=== PATIENT | male | born 1945 | race Caucasian/White ===

== ENCOUNTER 2017-08-22 14:48 | Inpatient (IN) | payer MEDICARE, MEDICAID ==
[~2017-08-22] VITALS: Ht 182.9 cm; Wt 86.6 kg
--- NOTE | ~2017-08-22 | PN ---
PATIENT:KIKO CASTRO MEDICAL RECORD: [id number] LOCATION:[facility] ADMISSION DATE: 08/22/17 PROGRESS NOTE DATE OF SERVICE: 09/01/2017 SUBJECTIVE: The patient's case was discussed with staff. He has no new complaint. OBJECTIVE: The patient is delusional and quite anxious, but he has shown significant improvement in the past few days. ASSESSMENT: No change in diagnoses. PLAN: Current medicines have been reviewed and will be maintained. His long-term prognosis is guarded. TRANSINT:[id number] Voice Confirmation ID: [id number] DOCUMENT ID: [id number] MAHIN DUONG MD at 1247 CC: [id number] DICTATION DATE: 09/01/17 1327 BILINGUAL ACCOUNT MANAGER: 09/01/17 1334 ADM IN [place] [id number] [place] [address]
--- NOTE | ~2017-08-22 | PN ---
PATIENT:KIKO CASTRO MEDICAL RECORD: [id number] LOCATION:[facility] ADMISSION DATE: 08/22/17 PROGRESS NOTE DATE OF SERVICE: 08/24/2017 SUBJECTIVE: The patient's case was discussed with staff. He has no new complaint. OBJECTIVE: The patient is very delusional, was agitated through the night and quite disruptive. ASSESSMENT: No change in diagnoses. PLAN: The patient is going to be treated with a scheduled dose of Geodon for his psychotic agitation. His Seroquel dose will be titrated downward as the Geodon is titrated upward. TRANSINT:[id number] Voice Confirmation ID: [id number] DOCUMENT ID: [id number] MAHIN DUONG MD at 1348 CC: [id number] DICTATION DATE: 08/24/17 1740 SUPPORT MERCHANDISER: 08/24/17 1832 ADM IN [facility] [address] [id number]
--- NOTE | ~2017-08-22 | PN ---
PATIENT:KIKO CASTRO MEDICAL RECORD: [id number] LOCATION:[facility] ADMISSION DATE: 08/22/17 PROGRESS NOTE DATE OF SERVICE: 09/03/2017 SUBJECTIVE: The patient's case was discussed with staff. He has no new complaint. OBJECTIVE: The patient is in good behavioral control with limited insight about his condition. He tolerates his medicines well. ASSESSMENT: No change in diagnoses. PLAN: Supportive and educational interventions were made. The patient is still delusional, but he is improving. TRANSINT:[id number] Voice Confirmation ID: [id number] DOCUMENT ID: [id number] MAHIN DUONG MD at 1809 CC: [id number] DICTATION DATE: 09/03/17 1030 SALES ACCOUNT MANAGER: 09/03/17 1122 ADM IN [place] [id number] [place] [address]
--- NOTE | ~2017-08-22 | PN ---
PATIENT:KIKO CASTRO MEDICAL RECORD: [id number] LOCATION:[facility] ADMISSION DATE: 08/22/17 PROGRESS NOTE DATE OF SERVICE: 08/30/2017 SUBJECTIVE: The patient's case was discussed with staff. He has no new complaint. OBJECTIVE: The patient actually has a Depakote level that is in the range I would have predicted given the dose he is taking, which I am very pleased to say indicates he has been compliant with medications at a level that is higher than I would have previously guessed. He continues to be delusional. He is very disorganized, easily distressed. I am going to push the dose of his Depakote and Geodon higher, but not today given his tendency to become easily distressed and overwhelmed by even the most minor side effect. He has only been on these doses a short period of time. I think he may actually be slightly better clinically, although he does have a long way to go before he is ready for discharge. For today, I am going to just prescribe a low dose of Klonopin. TRANSINT:[id number] Voice Confirmation ID: [id number] DOCUMENT ID: [id number] MAHIN DUONG MD at 1224 CC: [id number] DICTATION DATE: 08/30/17 1451 CONSTRUCTION ENGINEER: 08/30/17 1519 ADM IN [place] [id number] [place] [id number]
--- NOTE | ~2017-08-22 | PN ---
PATIENT:KIKO CASTRO MEDICAL RECORD: [id number] LOCATION:[facility] ADMISSION DATE: 08/22/17 PROGRESS NOTE DATE OF SERVICE: 09/08/2017 SUBJECTIVE: The patient's case was discussed with staff. He has no new complaint. OBJECTIVE: The patient is calm and cooperative. His thought processes are a little disorganized, but he is denying active thoughts of self-harm or harming others as well as overt psychotic symptoms. ASSESSMENT: No change in diagnoses. PLAN: Brief supportive and educational interventions were made. Nursing Home prognosis is guarded. TRANSINT:[id number] Voice Confirmation ID: [id number] DOCUMENT ID: [id number] MAHIN DUONG MD at 1403 CC: [id number] DICTATION DATE: 09/08/17 1325 STEEPING PRESS TENDER: 09/08/17 1339 ADM IN [id number] [place] [address]
--- NOTE | ~2017-08-22 | PSY ---
PATIENT NAME:KIKO CASTRO MEDICAL RECORD: [id number] : 49 LOCATION:[facility] ADMISSION DATE: 08/22/17 ACCOUNT: [id number] PSYCHIATRIC EVALUATION DATE OF EVALUATION: 08/23/17 IDENTIFYING DATA: The patient is 71 years old and he is admitted to the hospital on a voluntary basis. CHIEF COMPLAINT: Psychosis. HISTORY OF PRESENT ILLNESS: The patient has a history of dementia and a history of psychiatric disease. He lives in a local snf, where he has been observed actively hallucinating and confused. He also made some statements about wanting to kill himself, but he does not have any recollection of this. He apparently had some bizarre beliefs that a militia or a group of Nazis were after him. He also had some bizarre beliefs about the toilet being clogged and feces flowing out into his room, which certainly could happen, but it was not happening when he was so distressed about it. He minimizes these things and says that we just do not know who really is after us. PAST MEDICAL HISTORY: Significant for hypertension, coronary artery disease, peripheral vascular disease, COPD, and recent amputation of the right great toe. PAST PSYCHIATRIC HISTORY: Significant for long-standing psychiatric illness with an established diagnoses of both dementia and schizophrenia. ALLERGIES: HALDOL, LITHIUM, TRAMADOL, AND HYDROXYZINE. CURRENT MEDICATIONS: Include aspirin, Lipitor, Neurontin, nystatin, OxyContin, Minipress, Seroquel, Symbicort, Flomax, Desyrel, and Trileptal. FAMILY HISTORY: Negative for psychiatric disease by his report. SOCIAL HISTORY: The patient says that he previously worked at [employer]. He says he has been and and has 2 adult children with whom he has little or no contact. He has a long history of alcohol abuse, but none recently. He has no history of recreational drug use. MENTAL STATUS EXAMINATION: The patient is awake, alert, and oriented to person, place, and somewhat to time and situation. His mood is flat. His affect is constricted. Thought processes are circumstantial. Memory, concentration, and abstraction abilities are at least moderately impaired. He denies that he would seek to harm himself or others as well as overt psychotic symptoms. ASSETS: Supportive family members. LIABILITIES: Limited insight. DIAGNOSTIC IMPRESSION: AXIS I: Schizophrenia, chronic, undifferentiated. Senile dementia of the Alzheimer's type. AXIS II: None. AXIS III: Hypertension, coronary artery disease, peripheral vascular disease, COPD. AXIS IV: Moderate stressors. AXIS V: Global assessment of functioning is 30. PLAN: At this time, the patient is admitted to the hospital for a comprehensive medical, psychological, and social evaluation. He will be treated with both mood stabilizing, memory enhancing, and antipsychotic medications as deemed appropriate. His long-term prognosis is guarded. TRANSINT:[id number] Voice Confirmation ID: [id number] DOCUMENT ID: [id number] MAHIN DUONG MD at 1348 CC: [id number] DICTATION DATE: 08/23/17 1504 CHEMICAL MIXER: 08/23/17 1541 ADM IN [facility] [address] [id number]
--- NOTE | ~2017-08-22 | PN ---
PATIENT:KIKO CASTRO MEDICAL RECORD: [id number] LOCATION:[facility] ADMISSION DATE: 08/22/17 PROGRESS NOTE DATE OF SERVICE: 09/05/2017 SUBJECTIVE: The patient's case was discussed with staff. He has no new complaint. OBJECTIVE: The patient is in good behavioral control with limited insight about his condition. He tolerates his medicines well. ASSESSMENT: No change in diagnoses. PLAN: Brief supportive and educational interventions were made. Jail prognosis is guarded. I am going to check a Depakote level and will slightly reduce his bedtime dose of trazodone. TRANSINT:[id number] Voice Confirmation ID: [id number] DOCUMENT ID: [id number] MAHIN DUONG MD at 1445 CC: [id number] DICTATION DATE: 09/05/17 1336 RNP: 09/05/17 1412 ADM IN [place] [id number] [place] [id number]
--- NOTE | ~2017-08-22 | PN ---
PATIENT:KIKO CASTRO MEDICAL RECORD: [id number] LOCATION:[facility] ADMISSION DATE: 08/22/17 PROGRESS NOTE DATE OF SERVICE: 09/13/2017 SUBJECTIVE: The patient's case was discussed with staff. He has no new complaint. OBJECTIVE: The patient is in good behavioral control with limited insight about his condition. He does tolerate his medicines well. ASSESSMENT: No change in diagnoses. PLAN: Brief supportive and educational interventions were made. The patient does not have any evidence of acute or direct dangerousness and shall be transitioned out of the hospital today. TRANSINT:[id number] Voice Confirmation ID: [id number] DOCUMENT ID: [id number] MAHIN DUONG MD at 1218 CC: [id number] DICTATION DATE: 09/13/17 1445 TILE SETTER SUPERVISOR: 09/13/17 1458 DIS IN 09/13/17 [id number] [place] [address]
--- NOTE | ~2017-08-22 | PN ---
PATIENT:KIKO CASTRO MEDICAL RECORD: [id number] LOCATION:[facility] ADMISSION DATE: 08/22/17 PROGRESS NOTE DATE OF SERVICE: 08/29/2017 SUBJECTIVE: The patient's case was discussed with staff. He has no new complaint. OBJECTIVE: The patient is in good behavioral control. He has limited insight about his condition. He continues to make very bizarre and delusional statements and at times to be significantly agitated. He is intermittently compliant with his medications. I believe the mood stabilizer Depakote would help him. I am not sure how many doses he has missed or just simply stored in the side of his mouth and spit out. Given the dose he is on and the amount of time he is on, full compliance, I would expect a level in the range of 50. I shall certainly be surprised if it is higher than that and given his intermittent compliance, I would not be surprised if it is half that amount. I am going to discontinue his Seroquel and I am trying to manage him on a single antipsychotic medication and I am going to increase the Geodon. ASSESSMENT: No change in diagnoses. PLAN: As described above, the patient will be maintained on these medications with the changes as described. TRANSINT:[id number] Voice Confirmation ID: [id number] DOCUMENT ID: [id number] MAHIN DUONG MD at 1417 CC: [id number] DICTATION DATE: 08/29/17 1358 SLURRY TANK TENDER: 08/29/17 1414 ADM IN [place] [id number] [place] [address]
--- NOTE | ~2017-08-22 | PN ---
PATIENT:KIKO CASTRO MEDICAL RECORD: [id number] LOCATION:[facility] ADMISSION DATE: 08/22/17 PROGRESS NOTE DATE OF SERVICE: 09/09/2017 SUBJECTIVE: No new complaint noted. OBJECTIVE: The patient has been taking medications as prescribed. He has not shown any aggressiveness or agitation in the last 24 hours. On exam, mood is for the most part euthymic. Affect is somewhat peculiar with occasional inappropriate laughter. Speech is somewhat tangential. Content of thought is unchanged. Sensorium unchanged. ASSESSMENT: No change in diagnosis. PLAN: 1. Maintain current medications. 2. Continue supportive therapy. TRANSINT:[id number] Voice Confirmation ID: [id number] DOCUMENT ID: [id number] KIKO WALSH III, MD at 1341 CC: [id number] DICTATION DATE: 09/09/17 1144 COMMERCIAL LINES MANAGER: 09/09/17 1152 ADM IN [facility] [address] [place] [address]
--- NOTE | ~2017-08-22 | PN ---
PATIENT:KIKO CASTRO MEDICAL RECORD: [id number] LOCATION:[facility] ADMISSION DATE: 08/22/17 PROGRESS NOTE DATE OF SERVICE: 08/26/2017 SUBJECTIVE: The patient complains of various nonspecific somatic complaints. OBJECTIVE: The patient is somewhat less intrusive, but continues to exhibit demanding behavior. Speech is rambling. He exhibits estefania loosening of associations at times. Mood somewhat irritable. Affect is peculiar and generally inappropriate. Content of thought exhibits delusional ideation. Sensorium shows no change. ASSESSMENT: No change in diagnosis. PLAN: 1. Maintain current medication. 2. Continue supportive therapy. TRANSINT:[id number] Voice Confirmation ID: [id number] DOCUMENT ID: [id number] KIKO WALSH III, MD at 1142 CC: [id number] DICTATION DATE: 08/26/17 1213 MINE SHIFTER: 08/26/17 1219 ADM IN [place] [id number] [place] [address]
--- NOTE | ~2017-08-22 | PN ---
PATIENT:KIKO CASTRO MEDICAL RECORD: [id number] LOCATION:[facility] ADMISSION DATE: 08/22/17 PROGRESS NOTE DATE OF SERVICE: 09/06/2017 SUBJECTIVE: The patient's case was discussed with staff. He has no new complaint. OBJECTIVE: The patient continues to be disorganized and delusional. He has fairly limited insight about his condition. He has a Depakote level of 60 today. ASSESSMENT: No change in diagnoses. PLAN: Current medicines and therapies have been reviewed and will be maintained. I am going to consolidate the current dose of Depakote into a twice daily dosing schedule rather than a 3 times daily dosing schedule. TRANSINT:[id number] Voice Confirmation ID: [id number] DOCUMENT ID: [id number] MAHIN DUONG MD at 1147 CC: [id number] DICTATION DATE: 09/06/17 1456 SOAPING MACHINE BACK TENDER: 09/06/17 1518 ADM IN [place] [place] [address]
--- NOTE | ~2017-08-22 | PN ---
PATIENT:KIKO CASTRO MEDICAL RECORD: [id number] LOCATION:[facility] ADMISSION DATE: 08/22/17 PROGRESS NOTE DATE OF SERVICE: 09/07/2017 SUBJECTIVE: The patient's case was discussed with staff. He has no new complaint. OBJECTIVE: The patient denies intent to harm himself or others. He generally tolerates his medicines well. He is delusional and intrusive, but the intensity or degree of these symptoms has dramatically declined. ASSESSMENT: No change in diagnoses. PLAN: The patient is not currently suicidal. Physical therapy is evaluating him and working with him. He is sleeping an adequate amount. I am going to reduce his trazodone slightly. TRANSINT:[id number] Voice Confirmation ID: [id number] DOCUMENT ID: [id number] MAHIN DUONG MD at 1304 CC: [id number] DICTATION DATE: 09/07/17 1206 MORTGAGE PROFESSIONAL: 09/07/17 1219 ADM IN [place] [id number] [place] [address]
--- NOTE | ~2017-08-22 | PN ---
PATIENT:KIKO CASTRO MEDICAL RECORD: [id number] LOCATION:[facility] ADMISSION DATE: 08/22/17 PROGRESS NOTE DATE OF SERVICE: 09/02/2017 SUBJECTIVE: The patient's case was discussed with staff. He has no new complaint. OBJECTIVE: The patient is in good behavioral control with limited insight about his condition. He tolerates his medicines well. He is certainly very delusional and anxious, but his current medicines have not had much of an opportunity to become effective. I am sure, they will need additional adjustments, but at this point, I reviewed them and I am not going to make those changes. TRANSINT:[id number] Voice Confirmation ID: [id number] DOCUMENT ID: [id number] MAHIN DUONG MD at 1921 CC: [id number] DICTATION DATE: 09/02/17 1406 ASSOCIATE FINANCIAL PLANNER: 09/02/17 1419 ADM IN [facility] [address] [place] [address]
--- NOTE | ~2017-08-22 | DS ---
PATIENT:KIKO CASTRO :49 MEDICAL RECORD: [id number] DISCHARGE SUMMARY ADMISSION DATE: 08/22/17 DISCHARGE DATE: 09/13/17 IDENTIFYING DATA: The patient is 71 years old and he was admitted to the hospital on a voluntary basis because of psychotic symptoms. The patient has a history of dementia despite his relative youth and he unfortunately lives in a local prison where he has been observed hallucinating and confused. He also made statements about wanting to kill himself, but when interviewed about this did not have recollection of having done so. He had some fairly bizarre delusions, for example he believed that there was some sort of paramilitary group of Nazis that were after him. He also became very upset thinking that the toilet in his room was clogged with excrement and was overflowing which it was not. HOSPITAL COURSE: The patient was admitted to the hospital and fully evaluated from both a medical, psychological, and social standpoint. As it turns out, the patient actually has a history of mental illness and had been diagnosed previously with schizophrenia. Unfortunately, he also has cognitive decline consistent with a progressive dementia. He was treated with both antipsychotic and mood stabilizing and memory enhancing medications and showed significant improvement. He was subsequently transitioned out of the hospital. DISCHARGE DIAGNOSES: AXIS I: Schizophrenia, chronic, undifferentiated. Senile dementia of the Alzheimer's type. AXIS II: None. AXIS III: Hypertension, coronary artery disease, peripheral vascular disease, chronic obstructive pulmonary disease. AXIS IV: Moderate stressors. AXIS V: Global assessment of functioning is 35. PLAN: At the time of discharge, the patient was in good behavioral control and had no active thoughts of harming himself or others. He had some mild delusional thought content, but was otherwise dramatically improved with regard to his delusions and hallucinations. Unfortunately, there was little or no improvement in his underlying cognitive abilities as one would expect with the dementia. Follow up was to be with his primary care physician and his outpatient psychiatrist. TRANSINT:[id number] Voice Confirmation ID: [id number] DOCUMENT ID: [id number] MAHIN DUONG MD at 0804 CC: [id number] DICTATION DATE: 09/15/17 1355 CREPING MACHINE OPERATOR: 09/15/17 1410 DIS IN 09/13/17 [facility] [address] [facility] [address]
--- NOTE | ~2017-08-22 | PN ---
PATIENT:KIKO CASTRO MEDICAL RECORD: [id number] LOCATION:[facility] ADMISSION DATE: 08/22/17 PROGRESS NOTE DATE OF SERVICE: 08/31/2017 SUBJECTIVE: The patient's case was discussed with staff. He has no new complaint. OBJECTIVE: The patient continues to be delusional and disorganized. He makes a number of very bizarre statements. ASSESSMENT: No change in diagnoses. PLAN: The patient will have his Klonopin and Zyprexa increased. I am also going to increase his Depakote. Although, I typically would not make multiple changes of this kind all on the same day, his overall condition is such that it is required in my opinion. The patient continues to be very disorganized. His long-term prognosis is guarded. TRANSINT:[id number] Voice Confirmation ID: [id number] DOCUMENT ID: [id number] MAHIN DUONG MD at 1318 CC: [id number] DICTATION DATE: 08/31/17 1229 AUTOMOTIVE ENGINEERING TECHNICIAN: 08/31/17 1250 ADM IN [id number] [place] [address]
--- NOTE | ~2017-08-22 | PN ---
PATIENT:KIKO CASTRO MEDICAL RECORD: [id number] LOCATION:[facility] ADMISSION DATE: 08/22/17 PROGRESS NOTE DATE OF SERVICE: 09/12/2017 SUBJECTIVE: The patient's case was discussed with staff. He has no new complaint. OBJECTIVE: The patient is in good behavioral control, but delusional. ASSESSMENT: No change in diagnoses. PLAN: The patient has a high therapeutic Depakote level and has shown improvement. I believe he is reasonably safe to be transitioned out of the hospital tomorrow assuming this level of improvement is maintained. Followup will be with his primary care [facility] physician and outpatient psychiatrist. TRANSINT:[id number] Voice Confirmation ID: [id number] DOCUMENT ID: [id number] MAHIN DUONG MD at 1344 CC: [id number] DICTATION DATE: 09/12/17 1415 FAMILY SERVICES MANAGER: 09/12/17 1445 ADM IN [address] [id number] [place] [address]
--- NOTE | ~2017-08-22 | PN ---
PATIENT:KIKO CASTRO MEDICAL RECORD: [id number] LOCATION:[facility] ADMISSION DATE: 08/22/17 PROGRESS NOTE DATE OF SERVICE: 08/25/2017 SUBJECTIVE: The patient's case was discussed with staff. He has no new complaint. OBJECTIVE: The patient is in good behavioral control, although very delusional. He was agitated earlier today and required p.r.n. medication because of that agitation. ASSESSMENT: No change in diagnoses. PLAN: Current medicines and therapies have been reviewed and will be maintained. Long-term prognosis is guarded. TRANSINT:[id number] Voice Confirmation ID: [id number] DOCUMENT ID: [id number] MAHIN DUONG MD at 1348 CC: [id number] DICTATION DATE: 08/25/17 1512 SENIOR GL ACCOUNTANT: 08/25/17 1603 ADM IN [facility] [address] [id number]
[2017-08-22] MEDS ORDERED: ASPIRIN81 MG PO (15:14)
[2017-08-22] MEDS ORDERED: LIPITOR40 MG PO (15:15)
[2017-08-22] MEDS ORDERED: CALCIUM 600 +1 EAC3 PO (15:16)
[2017-08-22] MEDS ORDERED: IPRAT-ALBUT 0.5-3 ML UPD (15:17)
[2017-08-22] MEDS ORDERED: DULCOLAX5 MG PO (15:17)
[2017-08-22] MEDS ORDERED: FLUTICASONE PRO16 GM NASAL (15:18)
[2017-08-22] MEDS ORDERED: ENULOSE10 G/15 ML PO (15:19)
[2017-08-22] MEDS ORDERED: LIDODERM 5 %1 PATCH TRANSDERM (15:22)
[2017-08-22] MEDS ORDERED: MILK OF MAGNESI30 ML PO (15:23)
[2017-08-22] MEDS ORDERED: MIRALAX17 GM PO (15:23)
[2017-08-22] MEDS ORDERED: NAPROXEN250 MG PO (15:24)
[2017-08-22] MEDS ORDERED: NEURONTIN 300300 MG PO (15:24)
[2017-08-22] MEDS ORDERED: OMEPRAZOLE20 M1 PO (15:25)
[2017-08-22] MEDS ORDERED: NYSTATIN ORAL SU5 ML PO (15:25)
[2017-08-22] MEDS ORDERED: OXYCONTIN10 MG PO (15:27)
[2017-08-22] MEDS ORDERED: MINIPRESS2 MG PO (15:31)
[2017-08-22] MEDS ORDERED: REFRESH TEARS15 ML EACH EYE (15:32)
[2017-08-22] MEDS ORDERED: SANTYL30 GM TP (15:33)
[2017-08-22] MEDS ORDERED: SALINE NASAL SP45 ML NS (15:33)
[2017-08-22] MEDS ORDERED: SEROQUEL400 MG PO (15:34)
[2017-08-22] MEDS ORDERED: SENNA LAXATIVE8.6 MG PO (15:34)
[2017-08-22] MEDS ORDERED: SYMBICORT 80-10.2 GM INH (15:35)
[2017-08-22] MEDS ORDERED: COLACE100 MG PO (15:35)
[2017-08-22] MEDS ORDERED: FLOMAX0.4 MG PO (15:36)
[2017-08-22] MEDS ORDERED: DESERYL100 MG PO (15:36)
[2017-08-22] MEDS ORDERED: TRILEPTAL300 MG PO (15:36)
[2017-08-22] MEDS ORDERED: TUMS500 MG PO (15:38)
[2017-08-22 15:48] VITALS: BP 144/67
[2017-08-22 16:00] VITALS: BP 144/67
[2017-08-22 17:09] VITALS: BMI 25.9
[2017-08-22 19:49] VITALS: BP 141/51; BP 144/61
[2017-08-23 06:46] LABS: BASOPHILS 0.3 % (0-2); EOSINOPHILS 2.1 % (0-7); HEMOGLOBIN 12.7 g/dL (13.5-17.5); IMMATURE GRANULOCYTES 0.2 % (0-5); LYMPHOCYTES 18.3 % (15-50); MCH 30.6 pg (26.0-34.0); MCHC 33.4 g/dL (31.0-37.0); MCV 91.6 fL (80.0-100.0); MEAN PLATELET VOLUME 9.1 fL (7.4-10.4); MONOCYTES 10.6 % (2-11); NEUTROPHILS 68.5 % (40-80); PLATELET COUNT 210 10x3/uL (130-400); RBC 4.15 10x6/uL (4.20-6.10); RDW 16.2 % (11.5-14.5); WBC 5.7 10x3/uL (4.8-10.8)
[2017-08-23 07:13] LABS: ANION GAP 12.3 mmol/L (8-16); BILIRUBIN - TOTAL 0.3 mg/dL (0.2-1.3); CARBON DIOXIDE 25.6 mmol/L (21.0-32.0); CHOL - HDL RATIO 1.7 ratio (2.3-4.9); CREATININE - SERUM 1.2 mg/dL (0.6-1.3); LDL-HDL RATIO 0.5 ratio (1.5-3.5); POTASSIUM - SERUM 3.9 mmol/L (3.5-5.1); PROTEIN - SERUM 7.7 g/dL (6.4-8.2); THYROID STIMULATING HORMONE 3.31 uIU/mL (0.36-3.74)
[2017-08-23 09:52] VITALS: BP 100/58
[2017-08-23 11:05] VITALS: BP 100/58
[2017-08-23 13:45] LABS: APPEARANCE CLEAR (CLEAR); BILIRUBIN NEGATIVE (NEGATIVE); COLOR YELLOW (YELLOW); GLUCOSE NEGATIVE (NEGATIVE); KETONE NEGATIVE (NEGATIVE); NITRITE NEGATIVE (NEGATIVE); PROTEIN NEGATIVE (NEGATIVE); SPECIFIC GRAVITY 1.015 (1.005-1.020); UROBILINOGEN NORMAL (NORMAL)
[2017-08-23 19:42] VITALS: BP 135/72
[2017-08-24 07:29] LABS: RAPID PLASMA REAGIN Non Reactive (Non Reactive)
[2017-08-24 09:18] VITALS: BP 126/71
[2017-08-24 09:45] VITALS: BP 126/71
[2017-08-24 09:52] VITALS: BP 126/71
[2017-08-24 10:21] LABS: VITAMIN D 25 HYDROXY 38.1 ng/mL (30.0-100.0)
[2017-08-24 11:18] LABS: FOLATE (FOLIC ACID) - SERUM 10.4 ng/mL (>3.0)
[2017-08-24 20:30] VITALS: BP 121/50
[2017-08-25 10:33] VITALS: BP 99/65
[2017-08-25 12:58] VITALS: Ht 182.9 cm; Wt 86.6 kg
[2017-08-25 21:22] VITALS: BP 130/61
[2017-08-26 09:20] VITALS: BP 124/74
[2017-08-26 20:52] VITALS: BP 114/66
[2017-08-27 10:50] VITALS: BP 108/60
[2017-08-27 20:33] VITALS: BP 120/63
[2017-08-28 07:00] VITALS: BP 148/84
[2017-08-28 19:30] VITALS: BP 138/79
[2017-08-29 07:00] VITALS: BP 113/60
[2017-08-29 19:43] VITALS: BP 124/64
[2017-08-30 07:00] VITALS: BP 133/58
[2017-08-30 21:09] VITALS: BP 116/49
[2017-08-31 11:11] VITALS: BP 127/67
[2017-08-31 12:02] VITALS: BP 127/67
[2017-09-01 02:12] VITALS: BP 120/65
[2017-09-01 10:08] VITALS: BP 162/77
[2017-09-01 19:16] VITALS: BP 134/72
[2017-09-02 09:47] VITALS: BP 114/61
[2017-09-02 19:55] VITALS: BP 125/63
[2017-09-03 08:08] VITALS: BP 106/65
[2017-09-03 09:48] VITALS: BP 106/65
[2017-09-03 19:15] VITALS: BP 98/75
[2017-09-04 07:00] VITALS: BP 95/52
[2017-09-04 18:56] VITALS: BP 164/77
[2017-09-05 07:00] VITALS: BP 127/60
[2017-09-05 20:19] VITALS: BP 116/55
[2017-09-06 07:40] VITALS: BP 98/68
[2017-09-06 19:30] VITALS: BP 124/58
[2017-09-07 07:55] VITALS: BP 99/48
[2017-09-07 20:48] VITALS: BP 105/62
[2017-09-08 08:11] VITALS: BP 112/66
[2017-09-08 20:13] VITALS: BP 151/76
[2017-09-09 10:09] VITALS: BP 109/56
[2017-09-09 21:20] VITALS: BP 147/63
[2017-09-10 12:49] VITALS: BP 96/56
[2017-09-10 21:34] VITALS: BP 107/62
[2017-09-11 07:00] VITALS: BP 99/62
[2017-09-11 21:12] VITALS: BP 128/65
[2017-09-12 07:28] VITALS: BP 112/55
[2017-09-12] MEDS ORDERED: GABAPENTIN100 MG PO (14:16)
[2017-09-12] MEDS ORDERED: DESERYL100 MG PO (14:17)
[2017-09-12] MEDS ORDERED: DEPAKOTE500 MG PO (14:17)
[2017-09-12] MEDS ORDERED: GEODON40 MG PO (14:18)
[2017-09-12] MEDS ORDERED: FLORAJEN3 CAPS460 MG PO (14:18)
[2017-09-12 21:22] VITALS: BP 105/52
[2017-09-13 09:45] VITALS: BP 108/59
== END 2017-09-13 13:40 | DRG 885 ==
LOC: D.PSYCH 14:48
PROVIDERS: Psychiatry & Neurology Psychiatry
DX: F20.5 Residual schizophrenia (principal); R45.851 Suicidal ideations; F02.81 Dementia in other diseases classified elsewhere, unspecified severity, with behavioral disturbance; G30.1 Alzheimer's disease with late onset; I10 Essential (primary) hypertension; I25.10 Atherosclerotic heart disease of native coronary artery without angina pectoris; Z95.5 Presence of coronary angioplasty implant and graft; I73.9 Peripheral vascular disease, unspecified; J44.9 Chronic obstructive pulmonary disease, unspecified; Z72.0 Tobacco use; F41.9 Anxiety disorder, unspecified; E78.5 Hyperlipidemia, unspecified